=== PATIENT | male | born 1990 | race Caucasian/White ===

== ENCOUNTER 2017-03-09 22:27 | Emergency (ER) | payer OTHER ==
[~2017-03-09] VITALS: Ht 180.3 cm; Wt 154.6 kg
[2017-03-10] MEDS ORDERED: KETOROLAC TROMETHAMINE 60 MG/2 ML VIAL IM ONE (00:15)
[2017-03-10 00:21] VITALS: BP 133/79
== END 2017-03-10 00:22 | disposition home or self-care (01) ==
LOC: EMS 22:33
DX: R50.9 Fever, unspecified (principal)
CPT/HCPCS: 96372; 99283; J1885